=== PATIENT | female | born 1995 | race Caucasian/White ===

== ENCOUNTER 2024-07-04 13:55 | Outpatient (OUT) | payer BC, SELFPAY ==
[2024-07-04 14:14] LABS: Basophils Percent Auto 0.3 % (0.2-2.0); Eosinophils Absolute Auto 0.1 10^3/uL (0.0-0.7); Eosinophils Percent Auto 1.8 % (0.9-7.0); Hematocrit 37.3 % (36.0-48.0); Hemoglobin 12.1 g/dL (12.0-16.0); Immature Granulocytes Abs Auto 0.02 10^3/uL (0.00-0.03); Immature Granulocytes Pct Auto 0.3 % (0.0-0.5); Lymphocytes Absolute Auto 2.4 10^3/uL (1.2-3.8); Lymphocytes Percent Auto 36.5 % (20.5-60.0); Mean Corpuscular HGB Conc 32.4 g/dL (29.9-35.2); Mean Corpuscular Hemoglobin 26.4 pg (26.7-34.0); Mean Corpuscular Volume 81.4 fL (81.0-99.0); Monocytes Absolute Auto 0.3 10^3/uL (0.3-0.8); Neutrophils Absolute Auto 3.7 10^3/uL (1.4-6.5); Neutrophils Percent Auto 56.1 % (43.0-75.0); Platelet Count 378 10^3/uL (150-450); Red Blood Count 4.58 10^6/uL (4.20-5.40); Red Cell Distribution Width 14.6 % (11.0-15.0); White Blood Count 6.6 10^3/uL (4.0-11.0)
[2024-07-04 14:37] LABS: Estimated Average Glucose 148 mg/dL; Glycohemoglobin A1C 6.8 % (4.5-6.2)
[2024-07-04 15:36] LABS: Free T4 0.87 ng/dL (0.76-1.46)
[2024-07-04 15:43] LABS: Thyroid Stimulating Hormone 1.028 uIU/mL (0.358-3.740)
[2024-07-04 15:47] LABS: HCG Quantitative <1 mIU/mL
[2024-07-05 04:07] LABS: FSH 4.1 mIU/mL (.); Luteinizing Hormone(LH) 4.9 mIU/mL (.); Progesterone 0.2 ng/mL (.)
[2024-07-07 17:09] LABS: DHEA, Serum 375 ng/dL (31-701)
== END 2024-07-04 13:56 | disposition home or self-care (01) ==
LOC: LAB 13:58
PROVIDERS: PCP Family Medicine; Visit Provider Obstetrics & Gynecology
DX: E28.2 Polycystic ovarian syndrome (principal)
CPT/HCPCS: 36415; 82397; 82626; 82627; 83001; 83002; 83036; 84144; 84439; 84443; 84702; 85025

== ENCOUNTER 2024-07-11 13:54 | Outpatient (OUT) | payer BC, SELFPAY ==
--- NOTE | 2024-07-11 13:57 | US_ITS ---
The [address] [address] Patient Name: GARRETT MURPHY MRN: [id number] date: 1995 Sex: F Assigned Patient Location: Current Patient Location: Accession/Order Number: [id number] Exam Date: 07/11/2024 14:05 Report Date: 07/12/2024 14:01 At the request of: RADHA MAGUIRE Procedure: US pelvis w/ transvaginal EXAMINATION: US pelvis w/ transvaginal HISTORY: Polycystic Ovarian Syndrome E28.2 COMPARISON: No relevant comparison available. FINDINGS: Transabdominal and transvaginal images The uterus is normal in size, contour and echotexture, anteverted. Uterus measures 7.3 x 3.2 x 3.5 cm. No focal myometrial mass The endometrium measures 11.3 mm, normal. Areas of anechoic echogenicity cervix likely nabothian cysts The right ovary is normal measuring 3.1 x 1.6 x 2.4 cm. Normal color and Doppler flow. The left ovary is normal in size measuring 3.7 x 2.6 x 3.0 cm. Normal color Doppler flow. Multiple peripheral subcentimeter follicles US/US pelvis w/ transvaginal IMPRESSION: Asymmetric multiple peripheral subcentimeter follicles in the left ovary, polycystic ovarian morphology Electronically authenticated by: HEMA YAO Date: 07/12/2024 14:01
== END 2024-07-11 13:55 | disposition home or self-care (01) ==
LOC: US 13:55
PROVIDERS: Visit Provider Obstetrics & Gynecology
DX: E28.2 Polycystic ovarian syndrome (principal)
CPT/HCPCS: 76830; 76856

== ENCOUNTER 2024-07-23 15:59 | Emergency (ER) | payer BC, SELFPAY ==
[2024-07-23 16:02] VITALS: BP 115/39; PULSE 101; TEMP 37.3; O2SAT 98; BMI 52.4
--- OUTSIDE RECORDS SUMMARY | 2024-07-23 16:08 | XMS_ITS | CCD ---
Author Organization [facility] Care Team Providers Care 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 Name Role Phone JONATHAN, DR KAREN Vang Primary Care Unavailable NAJMA, DR HEMA Benitez Consulting Unavailable KUNS, DR KAREN Vang Admitting Unavailable KUNS, DR KAREN Vang Attending Unavailable KUNS, DR KAREN Vang Consulting Unavailable KUNS, DR KAREN Vang Primary Care Unavailable KUNS, DR KAREN Vang Admitting Unavailable KUNS, DR KAREN Vang Attending Unavailable KUNS, DR KAREN Vang Primary Care Unavailable KUNS, DR KAREN Vang Admitting Unavailable KUNS, DR KAREN Vang Attending Unavailable KUNS, DR KAREN Vang Primary Care Unavailable GUADALUPEEBCARTER, DR ROSHNI Vang Consulting Unavailable KUNS, DR KAREN Vang Admitting Unavailable KUNS, DR KAREN Vang Attending Unavailable KUNS, DR KAREN Vang Consulting Unavailable KUNS, DR KAREN Vang Primary Care Unavailable ZIEBCARTER, DR ROSHNI Vang Consulting Unavailable KUNS, DR KAREN Vang Admitting Unavailable KUNS, DR KAREN Vang Attending Unavailable KUNS, DR KAREN Vang Consulting Unavailable Furlong Yahir OKEEFE Primary Care Provider [phone] KAREN DAI Referring Unavailable FURLONG, YAHIR G Primary Care Unavailable KAREN DAI Attending Unavailable FURLONG, YAHIR G Referring Unavailable FURLONG, YAHIR G Primary Care Unavailable GERALD BUTTERFIELD Attending Unavailable KAREN DAI Referring Unavailable FURLONG, YAHIR G Primary Care Unavailable GERALD BUTTERFIELD Attending Unavailable FURLONG, YAHIR G Referring Unavailable FURLONG, YAHIR G Primary Care Unavailable KUNKAREN Munoz Attending Unavailable FURLONG, YAHIR G Referring Unavailable FURLONG, YAHIR G Primary Care Unavailable KUNKAREN Munoz Referring Unavailable FURLONG, YAHIR G Primary Care Unavailable CARMELO ROCHA Referring Unavailable FURLONG, YAHIR G Primary Care Unavailable FURLONG, YAHIR G Referring Unavailable FURLONG, YAHIR G Primary Care Unavailable HEMA ARRIETA Attending Unavailable HEMA ARRIETA Referring Unavailable RAQUELLONG, YAHIR G Primary Care Unavailable CARMELO ROCHA Admitting Unavailable CARMELO ROCHA Attending Unavailable CARMELO ROCHA Referring Unavailable RAQUELLONG, YAHIR G Primary Care Unavailable CARMELO ROCHA Attending Unavailable CARMELO ROCHA Referring Unavailable RAQUELLONG, YAHIR G Primary Care Unavailable JULIA HARRIS Attending Unavailable CASANDRANG, YAHIR G Primary Care Unavailable KAREN DAI Referring Unavailable RAQUELLONG, YAHIR G Primary Care Unavailable JUAN [place] Attending Unavailable RADHA MAGUIRE Attending Unavailable Allergies Allergy Classification Reported Allergen(s) Allergy Type Date of Onset Reaction(s) Facility (5 sources) Penicillins; Translations: [PENICILLINS] Drug allergy (disorder) 3 [facility] Repository (8 sources) Penicillins Propensity to adverse reactions to drug 3 Hives, Rash [facility] Medications Current Medications Medication Drug Class(es) Dates Sig (Normalized) Sig (Original) escitalopram 20 mg oral tablet (8 sources) Serotonin Reuptake Inhibitor Start: 11-13-2023 take 1 tablet by mouth in the morning escitalopram (LEXAPRO) 20 mg tablet Indications: Anxiety Take 1 tablet (20 mg total) by mouth in the morning. 90 tablet 1 11/13/2023 Active losartan potassium 25 mg oral tablet (6 sources) Angiotensin 2 Receptor [place] Start: 02-02-2024 take 1 tablet by mouth in the morning losartan (COZAAR) 25 mg tablet Indications: Type 2 diabetes mellitus without complication, without long-term current use of insulin ([facility]) Take 1 tablet (25 mg total) by mouth in the morning. 90 tablet 3 02/02/2024 Active psyllium 520 mg oral capsule (3 sources) Start: 02-16-2024 take 1 capsule by mouth at bedtime psyllium (METAMUCIL) 0.52 gram capsule Indications: Diarrhea, unspecified type Take 1 capsule (0.52 g total) by mouth in the morning and 1 capsule (0.52 g total) before bedtime. 60 capsule 1 02/16/2024 Active rosuvastatin calcium 5 mg oral tablet (6 sources) HMG-CoA Reductase Inhibitor Start: 02-02-2024 take 1 tablet by mouth once daily rosuvastatin (CRESTOR) 5 mg tablet Indications: Mixed hyperlipidemia Take 1 tablet (5 mg total) by mouth nightly. 90 tablet 3 02/02/2024 Active semaglutide (OZEMPIC) 0.25 mg or 0.5 mg (2 mg/3 mL) pen injector (2 sources) Start: 02-22-2024 semaglutide (OZEMPIC) 0.25 mg or 0.5 mg (2 mg/3 mL) pen injector Inject 0.25 mg under the skin every 7 days. 2 mL 0 02/22/2024 Active semaglutide, weight loss, (WEGOVY) 1 mg/0.5 mL pen injector (2 sources) Start: 11-13-2023 End: 02-02-2024 semaglutide, weight loss, (WEGOVY) 1 mg/0.5 mL pen injector Indications: Morbid obesity with BMI of 45.0-49.9, adult (CMS-HCC) Inject 0.5 mL (1 mg total) under the skin every 7 days. 2 mL 0 11/13/2023 02/02/2024 Discontinued (Therapy completed) Start: 11-13-2023 semaglutide, w eight loss, (WEGOVY) 1 mg/0.5 mL pen injector Indications: Morbid obesity with BMI of 45.0-49.9, adult (CMS-HCC) Inject 0.5 mL (1 mg total) under the skin every 7 days. 2 mL 0 11/13/2023 Active Completed/Discontinued Medications Medication Drug Class(es) Dates Sig (Normalized) Sig (Original) ferrous sulfate 325 mg oral tablet (1 source) Start: 12-21-2022 End: 02-01-2024 take 1 tablet by mouth once daily FeroSuL 325 mg (65 mg iron) tablet take 1 tablet by mouth once daily 30 tablet 5 12/21/2022 02/01/2024 Discontinued (Therapy completed) metFORMIN hydrochloride 850 mg oral tablet (6 sources) Biguanide Start: 02-23-2023 End: 02-16-2024 take 1 tablet by mouth twice daily at mealtime metFORMIN (GLUCOPHAGE) 850 mg tablet take 1 tablet by mouth twice a day - IN THE MORNING AND EVENING WITH MEALS 60 tablet 3 02/23/2023 02/16/2024 Discontinued (Discontinued by another clinician) tirzepatide (MOUNJARO) 2.5 mg/0.5 mL pen injector (4 sources) Start: 02-02-2024 End: 02-16-2024 tirzepatide (MOUNJARO) 2.5 mg/0.5 mL pen injector Indications: Type 2 diabetes mellitus without complication, without long-term current use of insulin (CMS-HCC) Inject 2.5 mg under the skin every 7 days. 2 mL 0 02/02/2024 02/16/2024 Discontinued (Cost of medication) Start: 02-02-2024 tirzepatide (M OUNJARO) 2.5 mg/0.5 mL pen injector Indications: Type 2 diabetes mellitus without complication, without long-term current use of insulin (CMS-HCC) Inject 2.5 mg under the skin every 7 days. 2 mL 0 02/02/2024 Active tirzepatide (MOUNJARO) 5 mg/ 0.5 mL pen injector (4 sources) Start: 02-23-2024 End: 02-16-2024 tirzepatide (MOUNJARO) 5 mg/ 0.5 mL pen injector Indications: Type 2 diabetes mellitus without complication, without long-term current use of insulin (CMS-HCC) Inject 5 mg under the skin every 7 days. 2 mL 2 02/23/2024 02/16/2024 Discontinued (Cost of medication) Start: 02-23-2024 tirzepatide (M OUNJARO) 5 mg/0.5 mL pen injector Indications: Type 2 diabetes mellitus without complication, without long-term current use of insulin (CMS-HCC) Inject 5 mg under the skin every 7 days. 2 mL 2 02/23/2024 Active Problems Active Problems Problem Classification Problem Date Documented Da te Episodic/Chronic Abdominal pain (1 source) Abdominal pain Onset: 4 Episodic Anxiety disorders (8 sources) Anxiety; Translations: [Anxiety disorder, unspecified] Onset: 3 02-25-2023 Chronic Deficiency and other anemia (1 source) Iron deficiency anemia due to blood loss; Translations: [Iron deficiency anemia secondary to blood loss (chronic)] 02-01-2024 Chronic Deficiency and other anemia (2 sources) Iron deficiency anemia secondary to blood loss (chronic); Translations: [Iron deficiency anemia secondary to blood loss (chronic)] Onset: 4 Chronic Diabetes mellitus without complication (10 sources) Type 2 diabetes mellitus without complication; Translations: [Type 2 diabetes mellitus without complications] Onset: 4 02-02-2024 Chronic Disorders of lipid metabolism (12 sources) Mixed hyperlipidemia; Translations: [Mixed hyperlipidemia] Onset: 3 02-01-2024 Chronic Esophageal disorders (1 source) Gastro-esophageal reflux disease without esophagitis; Translations: [Gastro-esophageal reflux disease without esophagitis] Onset: 4 Chronic Gastritis and duodenitis (1 source) Chronic superficial gastritis without bleeding; Translations: [Chronic superficial gastritis without bleeding] Onset: 4 Chronic Gastrointestinal hemorrhage (1 source) Hemorrhage of anus and rectum; Translations: [Hemorrhage of anus and rectum] Onset: 4 Episodic Gastrointestinal hemorrhage (1 source) Gastrointestinal hemorrhage Onset: 4 Malaise and fatigue (3 sources) Fatigue; Translations: [Other fatigue] Onset: 4 02-01-2024 Episodic Other endocrine disorders (5 sources) Polycystic ovarian syndrome; Translations: [POLYCYSTIC OVARIAN SYNDROME] Onset: 1 Chronic Other endocrine disorders (8 sources) Polycystic ovary syndrome; Translations: [Polycystic ovarian syndrome] Onset: 3 02-25-2023 Chronic Other female genital disorders (4 sources) Abnormal uterine and vaginal bleeding, unspecified; Translations: [ABNORMAL UTERINE VAGINAL BLEED UNS] Onset: 1 Chronic Other gastrointestinal disorders (4 sources) Diarrhea; Translations: [Diarrhea, unspecified] Onset: 4 02-01-2024 Episodic Other gastrointestinal disorders (1 source) Diarrhea of presumed infectious origin; Translations: [Diarrhea, unspecified] 02-03-2024 Episodic Other gastrointestinal disorders (2 sources) Diarrhea, unspecified; Translations: [Diarrhea, unspecified] Onset: 4 Episodic Other nutritional; endocrine; and metabolic disorders (8 sources) Body mass index 40+ - severely obese; Translations: [Morbid (severe) obesity due to excess calories] Onset: 3 02-25-2023 Chronic Other nutritional; endocrine; and metabolic disorders (1 source) Morbid (severe) obesity due to excess calories; Translations: [Morbid (severe) obesity due to excess calories] Onset: 3 Chronic Other nutritional; endocrine; and metabolic disorders (1 source) Body mass index (BMI) 45.0-49.9, adult; Translations: [Body mass index (BMI) 45.0-49.9, adult] Onset: 3 Chronic Unclassified (1 source) Gynecologic Exam Onset: 4 Unclassified (1 source) Esophagitis, unspecified without bleeding; Translations: [Esophagitis, unspecified without bleeding] Onset: 4 Past or Other Problems Problem Classification Problem Date Documented Da te Episodic/Chronic Diabetes mellitus without complication (4 sources) Prediabetes; Translations: [Prediabetes] Onset: 02-25-2023 02-01-2024 Episodic Mood disorders (8 sources) Mood disorders Onset: 02-01-2024 02-01-2024 Spondylosis; intervertebral disc disorders; other back problems (4 sources) Radiculopathy, lumbar region; Translations: [RADICULOPATHY LUMBAR REGION] Onset: 02-21-2022 Episodic Sprains and strains (4 sources) Strain of muscle, fascia and tendon of lower back, subsequent encounter; Translations: [STRAIN MUSC FASC TENDON LW BACK SUB] Onset: 02-18-2022 Episodic Results Test Name Value Interpretation Reference Range Facility Cytologyon 04-19-2024 Cytology Normal [facility] Comment on above: Result Comment: [facility] [address] [place] [address] Gynecologic Cytology Consultation Patient Name:GARRETT MURPHY:1995 (Age: 29)Gender:FTaken:4Reported:05/02/2024hysician(s):Karen Dai C.N.PTravis ([phone])Copy To: Rec. #:[id number]: #[id number] Final Cytologic Interpretation ThinPrep Pap Test (Cervical): Satisfactory for evaluation. A transformazion zone component is not identified via imaging-assisted review, using [employer] Thin Prep Imaging System, within 22 microscopic resendez of view. NEGATIVE FOR INTRAEPITHELIAL LESION OR MALIGNANCY. j/05/02/2024 Interpretation performed at [facility], [address] [place] [address], License number: [id number]. Electronically Signed Out By JUN Aguiar(ASCP) Date of Last Menstrual Period: 02/22/24 Other Clinical Conditions: Z01.419 Ui Developer With Angular Js exam wo/abn findings Source of Specimen ThinPrep Pap Test (Cervical) Thin Prep Pap (DIE ENGRAVER) Fee Code(s): G0145 The Pap test is a screening test with an inherent, but low, probability of error. The Pap test is primarily effective for the diagnosis and prevention of squamous cell carcinoma. Regular screening is critical for prevention. ThinPrep liquid-based slides, which meet the Energy Conservation Director criteria for automated screening, have been screened by the ThinPrep Imaging System (as of 08/09/07) along with an additional manual rescreening by a traffic engineering technician and, if indicated, by a pathologist. HIGH RISK HPV W/GENOon 04-19 HPV 31+33+35+39+45+51+52 +56+58+59+66+68 DNA NICHOLE+probe Ql (Cvx) HPV SPECIMEN TYPE ThinPrep HPV 16 Negative (qualifier value) HPV 18 Negative (qualifier value) OTHER HIGH RISK HPV Negative (qualifier value) HPV types 31,33,35,39,45,52,56,58 ,59,66 and 68 DNA were undetectable. Normal [facility] Comment on above: Performed By: #### 7 1431-1 #### [facility] ([id number]) [address] [place] [address], [place] [address] [facility] ([id number]) [address] [place] [address], [address] [place] [address] H PYLORI SCREENon 03-31-2024 H. pylori Org specific cx Ql (Raiza fld) Negative Normal NEG [facility] Comment on above: Performed By: #### 4 4015-6 #### [facility] ([id number]) [address] [place] [address], [address] [place] [address] HCG ( test) Ql (U)o n 03-31-2024 Beta HCG ( test) Ql (U) Negative Normal NEG [facility] Comment on above: Performed By: #### 2 106-3 #### [facility] ([id number]) [address] [facility], [place] [address] Surgical Pathologyon 024 Surgical Pathology Normal [facility] Comment on above: Result Comment: [facility] [address] [place] [address] Surgical Pathology Consultation ADDENDUM [place] Patient Name:GARRETT MURPHY:1995 (Age: 29)Gender:FTaken:03/31/2024eported:04/04/2024hysician(s):Carmelo Rocha D.O. ([phone])Copy To: Rec. #:[id number]: #[id number] Final Pathologic Diagnosis 1. Gastric antrum biopsies: Mild superficial nonspecific chronic inactive gastritis. Immunostain for H. pylori is pending. No intestinal metaplasia or dysplasia identified. 2. Distal esophageal biopsies: Unremarkable squamous mucosa. No active or eosinophilic esophagitis identified. No intestinal metaplasia or dysplasia identified. Report Electronically Signed Out ssi/04/04/2024Javier Ragland M.D. Addendum ([facility]) Date Reported: 04/05/2024 1. Immunohistochemical stain for H. pylori is negative with satisfactory control. Electronically Signed Out Javier Ragland M.D. Interpretation performed at [facility], [address] [place] [address], License number: [id number]. Clinical History Rectal bleeding, diarrhea, chronic gastroesophageal reflux. Gross Description 1. Received in formalin labeled KATHERINE, #1: Antrum are 2 dove bits/strips of soft tissue, ranging from 0.3-0.6 cm in greatest dimension. Filtered and submitted in a single cassette. (1, ns, [id number], m7) MG 2. Received in formalin labeled MURPHY, #2: Distal esophagus are 2 dove bits of soft tissue, each 0.3 cm in greatest dimension. Filtered and submitted in a single cassette. (1, ns, [id number], m7) MG mjg/03/31/2024NSK Specimen(s) Received 1: Antrum 2: Distal esophageal biopsy Fee Codes(s): 1; 07976, 04745 2; 98774 Calprotectin (Stl) [Mass/Mas s]on 02-17-2024 Calprotectin, F <50.0 Normal <50.0 (Normal) [facility] Comment on above: Result Comment: NOTE Test Performed by: [place] [address] Nurse Special: Ray Marie M.D. Ph.D.; CLIA# [id number] Performed By: #### 3 8445-3 #### [facility] ([id number]) [address] [place] [address] FAT, FECES QUANTon 4 DURATION 24 h Normal [facility] Comment on above: Result Comment: NOTE More reliable results can be obtained from a 48 or 72 hour collection. Performed By: #### F ATF #### [facility] ([id number]) [address] [place] [address] FAT PERCENT DNR Normal [facility] Comment on above: Performed By: #### F ATF #### [facility] ([id number]) [address] [place] [address] TOTAL FAT <1 Low 2 - 7 [facility] Comment on above: Result Comment: NOTE ADDITIONAL INFORMATION This test was developed and its performance characteristics determined by [facility] in a manner consistent with CLIA requirements. This test has not been cleared or approved by the U.S. Food and Drug Administration. Test Performed by: [address] [address] Nurse Special: Ray Marie M.D. Ph.D.; CLIA# [id number] Performed By: #### F ATF #### [facility] ([id number]) [address] [place] [address] TOTAL WEIGHT 40 g Normal [facility] Comment on above: Result Comment: NOTE A typical adult stool collection contains between 100 and 200 grams of stool per 24 hours. The amount submitted for testing was less than 100 grams/24 hours; therefore, reliable results may not be obtained. Repeat collection is recommended. Performed By: #### F ATF #### [facility] ([id number]) [address] [place] [address] GI PANELon 02-03-2024 Gastrointestinal pathogens DNA and RNA panel NICHOLE+non-probe (Stl) SPECIMEN SOURCE STOOL CAMPYLOBACTER Not detected (qualifier value) PLESIOMONAS Not detected (qualifier value) SALMONELLA Not detected (qualifier value) VIBRIO Not detected (qualifier value) VIBRIO CHOLERAE Not detected (qualifier value) Y. ENTEROCOLITICA Not detected (qualifier value) AGGREGATIVE E COLI Not detected (qualifier value) PATHOGENIC E COLI Not detected (qualifier value) TOXIGENIC E COLI Not detected (qualifier value) SHIGA TOXIN E COLI Not detected (qualifier value) SHIGELLA-E COLI Not detected (qualifier value) CRYPTOSPORIDIUM Not detected (qualifier value) CYCLOSPORA Not detected (qualifier value) E HISTOLYTICA Not detected (qualifier value) GIARDIA LAMBLIA Not detected (qualifier value) ADENOVIRUS Not detected (qualifier value) ASTROVIRUS Not detected (qualifier value) NOROVIRUS Not detected (qualifier value) ROTAVIRUS A Not detected (qualifier value) SAPOVIRUS Not detected (qualifier value) Normal NDET [facility] Comment on above: Performed By: #### 8 2195-9 #### [facility] ([id number]) [address] [facility], [place] [address] [facility] ([id number]) [address], [address] [place] [address] CBC AND AUTO DIFFon 02-01-20 24 ABSOLUTE BASOPHIL 0.1 X10E9/L Normal 0.0-0.2 [facility] Comment on above: Performed By: #### C BCA, CMP, 2498-4, 43846-9, THYR #### [facility] ([id number]) [address], [address] [place] [address] ABSOLUTE NEUTROPHIL 5.9 X10E9/L Normal 1.5-6.6 [facility] Comment on above: Performed By: #### C BCA, CMP, 2498-4, 56758-8, THYR #### [facility] ([id number]) [address], [address] [place] [address] Basophils/100 WBC (Bld) 0.7 % Normal [facility] Comment on above: Performed By: #### C BCA, CMP, 2498-4, 82531-6, THYR #### [facility] ([id number]) [address], [address] [place] [address] Eosinophils (Bld) [#/Vol] 0.1 10*3/uL Normal 0.0-0.4 [facility] Comment on above: Performed By: #### C BCA, CMP, 2498-4, 23112-7, THYR #### [facility] ([id number]) [address], [address] [place] [address] Eosinophils/100 WBC (Bld) 0.8 % Normal [facility] Comment on above: Performed By: #### C BCA, CMP, 2498-4, 89307-5, THYR #### [facility] ([id number]) [address], [address] [place] [address] Erythrocyte distribution width (RBC) [Ratio] 15.3 % High 11.5-15.0 [facility] Comment on above: Performed By: #### C BCA, CMP, 2498-4, 14611-6, THYR #### [facility] ([id number]) [address], [address] [place] [address] Hematocrit (Bld) [Volume fraction] 40.2 % Normal 35-47 [facility] Comment on above: Performed By: #### C BCA, CMP, 2498-4, 52665-2, THYR #### [facility] ([id number]) [address], [address] [place] [address] Hemoglobin (Bld) [Mass/Vol] 13.3 g/dL Normal 11.7-15.5 [facility] Comment on above: Performed By: #### C BCA, CMP, 2498-4, 87666-3, THYR #### [facility] ([id number]) [address], [address] [place] [address] Lymphocytes (Bld) [#/Vol] 1.9 10*3/uL Normal 1.0-3.5 [facility] Comment on above: Performed By: #### C BCA, CMP, 2498-4, 02201-9, THYR #### [facility] ([id number]) [address], [address] [place] [address] Lymphocytes/100 WBC (Bld) 22.9 % Normal [facility] Comment on above: Performed By: #### C BCA, CMP, 2498-4, 20818-0, THYR #### [facility] ([id number]) [address], [address] [place] [address] MCH (RBC) [Entitic mass] 27.1 pg Normal 27-34 [facility] Comment on above: Performed By: #### C BCA, CMP, 2498-4, 32638-2, THYR #### [facility] ([id number]) [address], [facility] [address] [place] [address] MCHC (RBC) [Mass/Vol] 33.0 g/dL Normal 32-36 [facility] Comment on above: Performed By: #### C BCA, CMP, 2498-4, 78013-5, THYR #### [facility] ([id number]) [address], [facility] [address] [place] [address] MCV (RBC) [Entitic vol] 82 fL Normal 80-100 [facility] Comment on above: Performed By: #### C BCA, CMP, 2498-4, 95092-2, THYR #### [facility] ([id number]) [address], [facility] [address] [place] [address] Monocytes (Bld) [#/Vol] 0.3 10*3/uL Normal 0-0.9 [facility] Comment on above: Performed By: #### C BCA, CMP, 2498-4, 67594-4, THYR #### [facility] ([id number]) [address], [address] [address] Monocytes/100 WBC (Bld) 4.1 % Normal [facility] Comment on above: Performed By: #### C BCA, CMP, 2498-4, 33162-7, THYR #### [facility] ([id number]) [address], [facility] [address] [place] [address] Neutrophils/100 WBC (Bld) 71.5 % Normal [facility] Comment on above: Performed By: #### C BCA, CMP, 2498-4, 95497-8, THYR #### [facility] ([id number]) [address], [address] [place] [address] Platelet mean volume (Bld) [Entitic vol] 7.8 fL Normal 7-12 [facility] Comment on above: Performed By: #### C BCA, CMP, 2498-4, 46796-6, THYR #### [facility] ([id number]) [address] [address] Platelets (Bld) [#/Vol] 429 10*3/uL Normal 150-450 [facility] Comment on above: Performed By: #### Liane BCA, CMP, 2498-4, 55867-4, THYR #### [facility] ([id number]) [address] [address] RBC COUNT 4.89 X10E12/L Normal 3.80-5.20 [facility] Comment on above: Performed By: #### Liane BCA, CMP, 2498-4, 52131-4, THYR #### [facility] ([id number]) [address] [address] WBC (Bld) [#/Vol] 8.2 10*3/uL Normal 4.0-11.0 [facility] Comment on above: Performed By: #### Liane BCA, CMP, 2498-4, 05801-3, THYR #### [facility] ([id number]) [address] [address] CBC auto differentialon 01-21 Basophils (Bld) [#/Vol] 0.1 10*3/uL [facility] Basophils/100 WBC (Bld) 0.7 % [facility] Eosinophils (Bld) [#/Vol] 0.1 10*3/uL [facility] Eosinophils/100 WBC (Bld) 0.8 % [facility] Erythrocyte distribution width (RBC) [Ratio] 15.3 % High 11.5 - 15.0 % [facility] Hematocrit (Bld) [Volume fraction] 40.2 % 35 - 47 % [facility] Hemoglobin (Bld) [Mass/Vol] 13.3 g/dL 11.7 - 15.5 g/dL [facility] Interpretation and review of laboratory results Abnormal [facility] Lymphocytes (Bld) [#/Vol] 1.9 10*3/uL [facility] Lymphocytes/100 WBC (Bld) 22.9 % [facility] MCH (RBC) [Entitic mass] 27.1 pg 27 - 34 pg [facility] MCHC (RBC) [Mass/Vol] 33.0 g/dL 32 - 36 g/dL [facility] MCV (RBC) [Entitic vol] 82 fL 80 - 100 fL [facility] Monocytes (Bld) [#/Vol] 0.3 10*3/uL [facility] Monocytes/100 WBC (Bld) 4.1 % [facility] Neutrophils (Bld) [#/Vol] 5.9 10*3/uL [facility] Neutrophils/100 WBC (Bld) 71.5 % [facility] Platelet mean volume (Bld) [Entitic vol] 7.8 fL 7 - 12 fL [facility] Platelets (Bld) [#/Vol] 429 10*3/uL [facility] RBC (Bld) [#/Vol] 4.89 10*6/uL [facility] WBC corrected for nucl RBC Auto (Bld) [#/Vol] 8.2 [facility] COMPREHENSIVE METABOLIC PANE Raffaele 02-01-2024 Albumin [Mass/Vol] 4.4 g/dL Normal 3.2-5.3 [facility] Comment on above: Performed By: #### C BCA, CMP, 2498-4, 16114-6, THYR #### [facility] ([id number]) [address], [address] [place] [address] ALP [Catalytic activity/Vol] 71 U/L Normal 39-130 [facility] Comment on above: Performed By: #### C BCA, CMP, 2498-4, 36272-8, THYR #### [facility] ([id number]) [address], [address] [place] [address] ALT [Catalytic activity/Vol] 53 U/L High 0-31 [facility] Comment on above: Performed By: #### C BCA, CMP, 2498-4, 87023-7, THYR #### [facility] ([id number]) [address], [address] [place] [address] Anion gap [Moles/Vol] 9 mmol/L Normal 5-15 [facility] Comment on above: Performed By: #### C BCA, CMP, 2498-4, 94989-5, THYR #### [facility] ([id number]) [address], [address] [place] [address] AST [Catalytic activity/Vol] 35 U/L Normal 0-41 [facility] Comment on above: Performed By: #### C BCA, CMP, 2498-4, 50343-6, THYR #### [facility] ([id number]) [address], [address] [place] [address] Bilirubin [Mass/Vol] 0.5 mg/dL Normal 0.3-1.2 [facility] Comment on above: Performed By: #### C BCA, CMP, 2498-4, 64076-5, THYR #### [facility] ([id number]) [address], [address] [place] [address] Calcium [Mass/Vol] 9.7 mg/dL Normal 8.5-10.5 [facility] Comment on above: Performed By: #### C BCA, CMP, 2498-4, 20555-5, THYR #### [facility] ([id number]) [address], [address] [place] [address] Chloride [Moles/Vol] 104 mmol/L Normal 98-109 [facility] Comment on above: Performed By: #### C BCA, CMP, 2498-4, 00287-5, THYR #### [facility] ([id number]) [address], [address] [place] [address] CO2 [Moles/Vol] 26 mmol/L Normal 22-32 [facility] Comment on above: Performed By: #### C BCA, CMP, 2498-4, 28364-1, THYR #### [facility] ([id number]) [address], [address] [place] [address] Creatinine [Mass/Vol] 0.57 mg/dL Normal 0.40-1.00 [facility] Comment on above: Result Comment: METH OD TRACEABLE TO IDMS STANDARD Performed By: #### C BCA, CMP, 2498-4, 73379-5, THYR #### [facility] ([id number]) [address], [address] [place] [address] eGFR (CKD-EPI) NON-RACE DEPENDENT >90 Normal >59 [facility] Comment on above: Result Comment: Reported eGFR is based on the CKD-EPI 2020 equation that does not use a race coefficient. Performed By: #### C BCA, CMP, 2498-4, 80619-9, THYR #### [facility] ([id number]) [address], [facility] [address] [place] [address] Glucose [Mass/Vol] 136 mg/dL High 65-99 [facility] Comment on above: Performed By: #### C BCA, CMP, 2498-4, 03636-8, THYR #### [facility] ([id number]) [address] [place] [address] Potassium [Moles/Vol] 3.8 mmol/L Normal 3.5-5.0 [facility] Comment on above: Performed By: #### C BCA, CMP, 2498-4, 01312-0, THYR #### [facility] ([id number]) [address], [address] [place] [address] Protein [Mass/Vol] 7.9 g/dL Normal 6.0-8.0 [facility] Comment on above: Performed By: #### C BCA, CMP, 2498-4, 98841-2, THYR #### [facility] ([id number]) [address], [facility] [address] [place] [address] Sodium [Moles/Vol] 139 mmol/L Normal 134-146 [facility] Comment on above: Performed By: #### C BCA, CMP, 2498-4, 08451-2, THYR #### [facility] ([id number]) [address], [facility] [address] [place] [address] Urea nitrogen [Mass/Vol] 8 mg/dL Normal 5-23 [facility] Comment on above: Performed By: #### C BCA, CMP, 2498-4, 78193-7, THYR #### [facility] ([id number]) [address], [facility] [address] [place] [address] HGB A1C (GLYCO-HGB)on 2023 Glucose [Mass/Vol] 157 mg/dL Normal [facility] Comment on above: Performed By: #### C BCA, CMP, 2498-4, 23796-8, THYR #### [facility] ([id number]) [address], [facility] [address] [place] [address] HbA1c (Bld) [Mass fraction] 7.1 % High 4.4-5.6 [facility] Comment on above: Result Comment: NOTE ADA Guidelines Result HgbA1c Normal : less than 5.7 % Prediabetes : 5.7 % to 6.4 % Diabetes : > 6.4 % Use with caution in patients with abnormal hemoglobin variants as the half-life of red blood cells and in vivo glycation rates are affected. Performed By: #### C BCA, CMP, 2498-4, 96198-1, THYR #### [facility] ([id number]) [address], [address] [place] [address] IRONon 02-01-2024 Iron [Mass/Vol] 80 ug/dL Normal 50-170 [facility] Comment on above: Performed By: #### Liane BCA, CMP, 2498-4, 13624-7, THYR #### [facility] ([id number]) [address], [address] [place] [address] Lipid 1996 panelon Cholesterol [Mass/Vol] 223 mg/dL High 150-200 [facility] Comment on above: Performed By: #### Liane BCA, CMP, 2498-4, 44281-8, THYR #### [facility] ([id number]) [address], [address] [place] [address] Cholesterol in HDL [Mass/Vol] 36 mg/dL Low >39 [facility] Comment on above: Result Comment: HDL <40 mg/dL - High Risk HDL > or = 40mg/dL- Desirable HDL >60 mg/dL - Negative Risk Performed By: #### C BCA, CMP, 2498-4, 05297-3, THYR #### [facility] ([id number]) [address], [address] [place] [address] Cholesterol in LDL [Mass/Vol] 123 mg/dL Normal <130 [facility] Comment on above: Result Comment: LDL <100 mg/dL - Desirable LDL >160 mg/dL - High Risk Performed By: #### C BCA, CMP, 2498-4, 39670-8, THYR #### [facility] ([id number]) [address], [address] [place] [address] Cholesterol in VLDL [Mass/Vol] 64 mg/dL High 0-30 [facility] Comment on above: Performed By: #### C BCA, CMP, 2498-4, 85307-0, THYR #### [facility] ([id number]) [address], [address] [place] [address] CHOLESTEROL:HDL 6.2 High 1.0-5.0 [facility] Comment on above: Performed By: #### C BCA, CMP, 2498-4, 70704-3, THYR #### [facility] ([id number]) [address], [address] [place] [address] Triglyceride [Mass/Vol] 320 mg/dL High 27-150 [facility] Comment on above: Performed By: #### C BCA, CMP, 2498-4, 69855-4, THYR #### [facility] ([id number]) [address], [address] [place] [address] THYROID PROFILEon 02-01-2024 Free T4 [Mass/Vol] 0.90 ng/dL Normal 0.61-1.60 [facility] Comment on above: Performed By: #### C BCA, CMP, 2498-4, 50117-7, THYR #### [facility] ([id number]) [address], [address] [place] [address] TSH 0.82 uIU/mL Normal 0.49-4.67 [facility] Comment on above: Performed By: #### C BCA, CMP, 2498-4, 25920-2, THYR #### [facility] ([id number]) [address], [address] [place] [address] XR LSPINE 2_3 VIEWSon 2021 XR LSPINE 2_3 VIEWS EXAMINATION: XR LSPI NE 2_3 VIEWS HISTORY: Lumbar radiculopathy COMPARISON: No relevant comparison available. FINDINGS: BONES: Normal. No significant spondylosis, scoliosis, fracture, or visible bony lesion. DISC SPACES: Normal. No significant disc height narrowing, subluxation, or endplate abnormality. PARASPINOUS: Negative. No paraspinous abnormality is seen. OTHER: Right upper quadrant surgical clips likely from cholecystectomy. IMPRESSION: No acute abnormality Electronically authenticated by: HEMA YAO Date: 2022-02-21 16:58 Normal [facility] US KIDNEYSon 11-15-2021 US KIDNEYS EXAMINATION: US KIDN S HISTORY: Polycystic ovary syndrome COMPARISON: No relevant comparison available. TECHNIQUE: Ultrasound examination was performed of the kidneys and urinary bladder. FINDINGS: RIGHT KIDNEY: No evidence of pelvocaliectasis, mass, calculi. Normal renal cortical parenchymal echogenicity. Color Doppler demonstrates blood flow within the kidney. Kidney: 12.5 x 6.0 x 6.5 cm LEFT KIDNEY: No evidence of pelvocaliectasis, mass, calculi. Normal renal cortical parenchymal echogenicity. Color Doppler demonstrates blood flow within the kidney. Kidney: 13.2 x 7.0 x 4.8 cm BLADDER: No visible wall thickening, mass, calculi. IMPRESSION: 1. Normal ultrasound appearance of the kidneys and urinary bladder. Electronically authenticated by: ROSHNI HERNANDEZ Date: 2021-11-15 11:51 Normal [facility] US PELVIS AND TRANSVAGon US PELVIS AND TRANSVAG EXAMINATION: US PELVIS AND TRANSVAG HISTORY: Abnormal uterine bleeding unrelated to menstrual cycle COMPARISON: No relevant comparison available. TECHNIQUE: Transabdominal and transvaginal sonographic examination. FINDINGS: UTERUS: Normal size and appearance. Several small nabothian cysts within becker of cervix. Uterus size: 7.4 x 2.9 x 4.2 cm ENDOMETRIUM: Normal homogeneous appearance. Endometrial thickness: 5 mm RIGHT OVARY: Contains numerous peripherally located small follicles. Duplex Doppler demonstrates normal waveform and flow; resistive index 0.55. Ovary size: 4.0 x 3.1 x 2.9 cm LEFT OVARY: Contains numerous peripherally located small follicles. Duplex Doppler demonstrates normal waveform and flow; resistive index 0.51. Ovary size: 3.8 x 2.3 x 3.0 cm CUL-DE-SAC: Unremarkable. No significant free fluid. BLADDER: Unremarkable. OTHER: None. IMPRESSION: 1. Normal appearance of endometrium. 2. Both ovaries contain numerous peripherally located small follicles; nonspecific but can be seen with polycystic kidney disease. Electronically authenticated by: ROSHNI HERNANDEZ Date: 2021-11-13 16:47 Normal [facility] CBC (INCLUDES DIFF/PLT)on Basophils (Bld) [#/Vol] 0.051 10*3/uL Normal 0-200 [facility] Comment on above: Performed By: #### 6 399, 20402, 5616 #### [facility] [place] [address] [address]: Shaquille Granger MD Basophils/100 WBC (Bld) 0.5 % Normal [facility] Comment on above: Performed By: #### 6 399, 64969, 5616 #### [facility] [place] [address] [address] [place]: Shaquille Granger MD Eosinophils (Bld) [#/Vol] 0.122 10*3/uL Normal 15-500 [facility] Comment on above: Performed By: #### 6 399, 45471, 5616 #### [facility] [place] [address] [address] [place]: Shaquille Granger MD Eosinophils/100 WBC (Bld) 1.2 % Normal [facility] Comment on above: Performed By: #### 6 399, 07692, 5616 #### [facility] [place] [address] [address]: Shaquille Granger MD Erythrocyte distribution width (RBC) [Ratio] 17.5 % High 11.0-15.0 [facility] Comment on above: Performed By: #### 6 399, 84899, 5616 #### [facility] [place] [address] [address]: Shaquille Granger MD Hematocrit (Bld) [Volume fraction] 29.0 % Low 35.0-45.0 [facility] Comment on above: Performed By: #### 6 399, 75198, 5616 #### [facility] of [place] [address] [address]: Shaquille Granger MD Hemoglobin (Bld) [Mass/Vol] 8.7 g/dL Low 11.7-15.5 [facility] Comment on above: Performed By: #### 6 399, 60716, 5616 #### [facility] of [place] [address] [address]: Shaquille Granger MD Lymphocytes (Bld) [#/Vol] 3.866 10*3/uL Normal 850-3900 [facility] Comment on above: Performed By: #### 6 399, 58567, 5616 #### [facility] of [place] [address] [address] [place]: Shaquille Granger MD Lymphocytes/100 WBC (Bld) 37.9 % Normal [facility] Comment on above: Performed By: #### 6 399, 56684, 5616 #### [facility] [place] [address] [address]: Shaquille Granger MD MCH (RBC) [Entitic mass] 21.0 pg Low 27.0-33.0 [facility] Comment on above: Performed By: #### 6 399, 85791, 5616 #### [facility] of [place] [address] [address]: Shaquille Granger MD MCHC (RBC) [Mass/Vol] 30.0 g/dL Low 32.0-36.0 [facility] Comment on above: Performed By: #### 6 399, 71167, 5616 #### [facility] of [place] [address] [address]: Shaquille Granger MD MCV (RBC) [Entitic vol] 69.9 fL Low 80.0-100.0 [facility] Comment on above: Performed By: #### 6 399, 48952, 5616 #### [facility] of [place] [address] [address]: Shaquille Granger MD Monocytes (Bld) [#/Vol] 0.622 10*3/uL Normal 200-950 [facility] Comment on above: Performed By: #### 6 399, 41785, 5616 #### [facility] of [place] [address] [address]: Shaquille Granger MD Monocytes/100 WBC (Bld) 6.1 % Normal [facility] Comment on above: Performed By: #### 6 399, 58846, 5616 #### [facility] of [place] [address] [address]: Shaquille Granger MD Neutrophils (Bld) [#/Vol] 5.539 10*3/uL Normal 2197-1642 [facility] Comment on above: Performed By: #### 6 399, 86226, 5616 #### [facility] [place] [address] [address] [place]: Shaquille Granger MD Neutrophils/100 WBC (Bld) 54.3 % Normal [facility] Comment on above: Performed By: #### 6 399, 41190, 5616 #### [facility] [place] [address] [address]: Shaquille Granger MD Platelet mean volume (Bld) [Entitic vol] 9.5 fL Normal 7.5-12.5 [facility] Comment on above: Performed By: #### 6 399, 43806, 5616 #### [facility] of [place] [address] [address]: Shaquille Granger MD Platelets (Bld) [#/Vol] 586 10*3/uL High 140-400 [facility] Comment on above: Performed By: #### 6 399, 53251, 5616 #### [facility] of [address], [address] [place] [address] [address] [place]: Shaquille Granger MD RBC (Bld) [#/Vol] 4.15 10*6/uL Normal 3.80-5.10 [facility] Comment on above: Performed By: #### 6 399, 42600, 5616 #### [facility] of [address], [address] [place] [address] [address] [place]: Shaquille Granger MD WBC (Bld) [#/Vol] 10.2 10*3/uL Normal 3.8-10.8 [facility] Comment on above: Performed By: #### 6 399, 89433, 5616 #### [facility] of [place] [address] [address]: Shaquille Granger MD CBC MORPHOLOGYon 11-08-2021 CBC MORPHOLOGY Normal NORMAL [facility] Comment on above: Result Comment: Micr ocytosis 2 + Polychromasia 1 + Hypochromasia 2 + Ovalocytes 1 + Performed By: #### 6 399, 93431, 5616 #### [facility] [place] [address] [address]: Shaquille Granger MD IRON, TIBC AND FERRITIN [facility] 11-08-2021 % SATURATION 4 % (calc) Low 16-45 [facility] Comment on above: Performed By: #### 6 399, 76921, 5616 #### [facility] of [place] [address] [address]: Shaquille Granger MD Ferritin [Mass/Vol] 6 ng/mL Low 16-154 [facility] Comment on above: Performed By: #### 6 399, 93956, 5616 #### [facility] of [place] [address] [address]: Shaquille Granger MD IRON BINDING CAPACITY 572 mcg/dL (calc) High 250-450 [facility] Comment on above: Performed By: #### 6 399, 25271, 5616 #### [facility] [address], [address] [place] [address] [address] [place]: Shaquille Granger MD IRON, TOTAL 23 mcg/dL Low 40-190 [facility] Comment on above: Performed By: #### 6 399, 07585, 5616 #### [facility] [address], [address] [place] [address] [address] [place]: Shaquille Granger MD TSH+FREE T4on 11-08-2021 Free T4 [Mass/Vol] 1.1 ng/dL Normal 0.8-1.8 [facility] Comment on above: Performed By: #### 6 399, 90591, 5616 #### [facility] [place] [address] [address]: Shaquille Granger MD TSH Qn 0.88 m[IU]/L Normal [facility] Comment on above: Result Comment: Refe rence Range > or = 20 Years 0.40-4.50 Ranges First trimester 0.26-2.66 Second trimester 0.55-2.73 Third trimester 0.43-2.91 Performed By: #### 6 399, 85038, 5616 #### [facility] [place] [address] [address]: Shaquille Granger MD IMAGE-GUIDED PAP W/AGE BASED SCR PROTOCOLSon 02-08-2021 COMMENT Normal [facility] Comment on above: Result Comment: This order for age-based cervical cancer and STI screening follows ACOG guidelines(PB 168, 140, LCN454). See individual assays for performing site location. Performed By: #### 9 0934, 64020 #### [facility] [address] [address]: Shaquille Granger MD Result Comment: EXPL ANATORY NOTE: The Pap is a screening test for cervical cancer. It is not a diagnostic test and is subject to false negative and false positive results. It is most reliable when a satisfactory sample, regularly obtained, is submitted with relevant clinical findings and history, and when the Pap result is evaluated along with historic and current clinical information. NO COLLECTION DATE RECEIVED. WE HAVE USED THE DATE THE SPECIMEN WAS RECEIVED BY THIS LABORATORY THE COLLECTION DATE. IF THIS IS INCORRECT, PLEASE CONTACT CLIENT SERVICES. PHONE NUMBER: [phone] THINPREP TIS PAP REFLEX HPV mRNA E6/E7on 02-08-2021 CLINICAL INFORMATION: Normal [facility] Comment on above: Result Comment: Rout ine exam Performed By: #### 9 0934, 44746 #### [facility] [address] [address]: Shaquille Granger MD COMMENT: Normal [facility] Comment on above: Result Comment: This Pap test has been evaluated with computer assisted technology. Performed By: #### 9 0934, 03820 #### [facility] [address] [address]: Shaquille Granger MD ELECTRICIAN STATION ASSISTANT: Normal [facility] Comment on above: Result Comment: LLT, CT(ASCP) CT screening location: [facility] [place] [address]. Performed By: #### 9 0934, 44228 #### [facility] [address] [address]: Shaquille Granger MD INTERPRETATION/RESUL T: Normal [facility] Comment on above: Result Comment: Nega tive for intraepithelial lesion or malignancy. Performed By: #### 9 0934, 27703 #### [facility] [address] [address]: Shaquille Granger MD LMP: Normal [facility] Comment on above: Result Comment: None given Performed By: #### 9 0934, 10035 #### [facility] [address] [address]: Shaquille Granger MD PREV. BX: Normal [facility] Comment on above: Result Comment: None given Performed By: #### 9 0934, 88453 #### [facility] [place] [phone] [address] [place]: Shaquille Granger MD PREV. PAP: Normal [facility] Comment on above: Result Comment: None given Performed By: #### 9 0934, 15427 #### [facility]-[address], [address] [place] [phone] [address] [place]: Shaquille Granger MD SOURCE: Normal [facility] Comment on above: Result Comment: None given Performed By: #### 9 0934, 08043 #### [facility], [address] [place] [phone] [address] [place]: Shaquille Granger MD STATEMENT OF ADEQUACY: Normal [facility] Comment on above: Result Comment: Sati sfactory for evaluation. Endocervical/transformation zone component absent. Performed By: #### 9 0934, 48711 #### [facility]-[address], [address] [place] [phone] [address] [place]: Shaquille Granger MD Vital Signs Date Time Vital Sign Value Performing Clinician Hanny hagen 02-16-2024 13:21-0400 Body height 165.1 cm Gerald Butterfield APRN-IMMIGRATION SERVICES OFFICER Work Phone: [facility] 02-16-2024 13:21-0400 Body mass index (BMI) [Ratio] 49.67 kg/m2 Gerald Butterfield APRN-IMMIGRATION SERVICES OFFICER Work Phone: [facility] 02-16-2024 13:21-040 Body weight 135.4 kg Gerald Butterfield APRN-IMMIGRATION SERVICES OFFICER Work Phone: [facility] 02-16-2024 13:21-0400 Diastolic blood pressure 85 mm[Hg] Gerald Butterfield APRN-IMMIGRATION SERVICES OFFICER Work Phone: [facility] 02-16-2024 13:21-0400 Heart rate 71 /min Gerald Butterfield APRN-IMMIGRATION SERVICES OFFICER Work Phone: [facility] 02-16-2024 13:21-0400 Systolic blood pressure 153 mm[Hg] Gerald Butterfield NURSING HOME ADMINISTRATOR-IMMIGRATION SERVICES OFFICER Work Phone: [facility] 02-01-2024 13:01-0400 Body height 165.1 cm Karen Dai NURSING HOME 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 Work Phone: [facility] 02-01-2024 13:01-0400 Body mass index (BMI) [Ratio] 50.19 kg/m2 Karen Dai NURSING HOME 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 Work Phone: [facility] 02-01-2024 13:01-0400 Body temperature 98.8 [degF] Karen Dai NURSING HOME 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 Work Phone: [facility] 02-01-2024 13:01-0400 Body weight 136.81 kg Karen Dai NURSING HOME 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 Work Phone: [facility] 02-01-2024 13:01-0400 Diastolic blood pressure 70 mm[Hg] Karen Dai NURSING HOME 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 Work Phone: [facility] 02-01-2024 13:01-0400 Heart rate 87 /min Karen Dai NURSING HOME 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 Work Phone: [facility] 02-01-2024 13:01-0400 SaO2% (BldA) [Mass fraction] 97 % Karen Dai NURSING HOME 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 Work Phone: [facility] 02-01-2024 13:01-0400 Systolic blood pressure 138 mm[Hg] Karen Dai NURSING HOME 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 Work Phone: [facility] Encounters Encounter Date Encounter Type Care Provider Facility Start: 07-04-2024 End: 07-04-2024 ambulatory RADHA MAGUIRE Not Available Start: 05-04-2024 End: 05-04-2024 ambulatory [place]AN [place] Not Available Start: 04-19-2024 End: 04-19-2024 ambulatory KAREN DAI [facility] Start: 04-19-2024 Encounter for gynecological examination (general) (routine) without abnormal findings [facility] Start: 04-19-2024 End: 04-19-2024 [facility] Start: 04-19-2024 Encounter for gynecological examination (general) (routine) without abnormal findings [facility] Start: 04-01-2024 End: 04-01-2024 Evaluation and management of inpatient JULIA HARRIS [facility] Start: 03-31-2024 End: 04-01-2024 Evaluation and management of inpatient CARMELO [facility] Start: 03-17-2024 End: 03-17-2024 ambulatory HEMA Wilson BERNY [facility] Start: 03-17-2024 Encounter for other preprocedural examination [facility] Start: 03-15-2024 End: 03-15-2024 ambulatory [facility] Start: 02-23-2024 Telephone encounter Subha Irene CMA [facility] Start: 02-22-2024 Orders Only Karen Dai NURSING HOME 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 Work Phone: [facility] Comment on above: Type 2 diabetes nancy itus without complication, without long- term current use of insulin ([facility]) (Primary Dx) Start: 02-17-2024 End: 02-17-2024 ambulatory [facility] Start: 02-16-2024 End: 02-16-2024 ambulatory [facility] Start: 02-16-2024 End: 02-16-2024 Office outpatient new 30 minutes [facility] NURSING HOME ADMINISTRATOR-IMMIGRATION SERVICES OFFICER Work Phone: [facility] Comment on above: Diarrhea, unspecifie d type (Primary Dx) Start: 02-04-2024 Orders Only Karen Dai NURSING HOME 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 Work Phone: [facility] Comment on above: Diarrhea, unspecifie d type (Primary Dx) Start: 02-03-2024 End: 02-03-2024 Orders Only Karen Dai NURSING HOME 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 Work Phone: [facility] Comment on above: Diarrhea of presumed infectious origin (Primary Dx) Start: 02-02-2024 Orders Only Karen Dai NURSING HOME 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 Work Phone: [facility] Comment on above: Type 2 diabetes nancy itus without complication, without long- term current use of insulin ([facility]) (Primary Dx); Mixed hyperlipidemia Start: 02-02-2024 End: 02-02-2024 ambulatory [facility] Start: 02-01-2024 End: 02-01-2024 ambulatory [facility] Start: 02-01-2024 End: 02-01-2024 Office outpatient visit 15 minutes Karen Dai NURSING HOME 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 Work Phone: [facility] Comment on above: Diarrhea, unspecifie d type (Primary Dx); Prediabetes; Fatigue, unspecified type; Mixed hyperlipidemia; Iron deficiency anemia due to chronic blood loss Start: 07-19-[address] KAREN DAI Facility :[facility] Start: 02-21-2022 End: 02-22-[address] KAREN DAI Facility:[facility] Start: 02-18-2022 End: 03-28-[address] KAREN DAI Facility:[facility] Start: 11-15-2021 End: 11-16-[address] KAREN DAI Facility:[facility] Start: 11-13-2021 End: 11-14-[address] KAREN DAI Facility:[facility] Procedures Date Procedure Procedure Detail Performing Clinician Start: 02-01-2024 Adult depression scr eening assessment Karen Dai NURSING HOME 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 Work Phone: Start: 02-08-2021 Microscopic observat ion [Identifier] in Cervix by Cyto stain Karen Dai NURSING HOME 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 Work Phone: Plan of Treatment Date Care Activity Detail Author Start: 02-15-2025 Adult BMI Screening Adult BMI Screen ing [facility] Start: 2025 Tobacco Screening Tobacco Screening [facility] Start: 01-31-2025 Adult BMI Screening Adult BMI Screen ing [facility] Start: 01-31-2025 Depression Screening Depression Scre ening [facility] Start: 01-31-2025 Tobacco Screening Tobacco Screening [facility] Start: 07-24-2024 Influenza vaccination Influenza Vacc ine [facility] Start: 03-24-2024 End: 03-24-2024 Patient encounter procedure 03/24/2024 2:00 PM EDT Office Visit [facility] [address] [place] [address] Karen Dai, NURSING HOME 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 [address] [place] [address] [facility] Internal Medicine - Family Medicine Start: 03-15-2024 End: 03-15-2024 Patient encounter procedure 03/15/2024 2:15 PM EDT Office Visit [facility] General Surgery [address] [place] [address] Gerald Butterfield NURSING HOME ADMINISTRATOR-IMMIGRATION SERVICES OFFICER [address] [place] [address] [facility] General Surgery Start: 02-26-2024 End: 02-26-2024 Patient encounter procedure 02/26/2024 1:30 PM EDT Office Visit [facility] General Surgery [address] [place] [address] Gerald Butterfield, NURSING HOME ADMINISTRATOR-IMMIGRATION SERVICES OFFICER [address] [facility] [place] [address] [facility] General Surgery Start: 02-23-2024 End: 02-23-2024 Patient encounter procedure 02/23/2024 1:00 PM EDT Office Visit [facility] [address] [place] [address] Karen Dai, NURSING HOME 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 [address] [place] [address] [facility] Start: 02-22-2024 DTaP,Tdap and Td Vaccines (6 - Tdap) DTaP,Tdap and Td Vaccines (6 - Tdap) [facility] Comment on above: Postponed from 03/26 (Patient Refused) Start: 02-20-2024 Adult BMI Screening Adult BMI Screen ing [facility] Start: 02-20-2024 Depression Screening Depression Scre ening [facility] Start: 02-20-2024 Tobacco Screening Tobacco Screening [facility] Start: 02-09-2024 Screening for malign ant neoplasm of cervix Pap Smear [facility] Start: 07-24-2023 Influenza vaccination Influenza Vacc ine [facility] Start: 2012 Adult BMI Follow Up Plan Adult BMI Follow Up Plan [facility] Start: 2012 Diabetic foot examination Diabetic Foot Exam [facility] Start: 2005 DTaP,Tdap and Td Vaccines (6 - Tdap) DTaP,Tdap and Td Vaccines (6 - Tdap) [facility] Start: 1994 Glaucoma screening Diabetic Op hthalmology Exam [facility] Start: 1994 Urine screening for protein Urine Microalbumin [facility] End: 02-15-2025 Calprotectin, F Calprotectin, F Lab Routine Diarrhea, unspecified type 1 Occurrences starting 02/16/2024 until 02/15/2025 [facility] Work Phone: Comment on above: 1 Occurrences starti ng 02/16/2024 until 02/15/2025 End: 01-31-2025 Comprehensive metabolic 2000 panel - Serum or Plasma Comprehensive metabolic panel Lab Routine Fatigue, unspecified type 1 Occurrences starting 02/01/2024 until 01/31/2025 [facility] Comment on above: 1 Occurrences starti ng 02/01/2024 until 01/31/2025 Comprehensive metabo lic 2000 panel - Serum or Plasma Comprehensive metabolic panel Lab Routine Fatigue, unspecified type 02/01/2024 10:54 PM EDT [facility] End: 02-02-2025 Fecal fat, quantitative Fecal fat, quantitative Lab Routine Diarrhea of presumed infectious origin 1 Occurrences starting 02/03/2024 until 02/02/2025 Active [facility] Work Phone: Comment on above: 1 Occurrences starti ng 02/03/2024 until 02/02/2025 End: 02-02-2025 GI Panel(stool pathogen panel) GI Panel(stool pathogen panel) Lab Routine Diarrhea of presumed infectious origin 1 Occurrences starting 02/03/2024 until 02/02/2025 [facility] Comment on above: 1 Occurrences starti ng 02/03/2024 until 02/02/2025 End: 01-31-2025 Hemoglobin A1c/Hemoglobin.total in Blood Hemoglobin A1c Lab Routine Prediabetes 1 Occurrences starting 02/01/2024 until 01/31/2025 [facility] Comment on above: 1 Occurrences starti ng 02/01/2024 until 01/31/2025 Hemoglobin A1c/Hemoglobin.total in Blood Hemoglobin A1c Lab Routine Prediabetes 02/01/2024 10:54 PM EDT [facility] End: 01-31-2025 Iron [Mass/volume] in Serum or Plasma Iron level Lab Routine Iron deficiency anemia due to chronic blood loss 1 Occurrences starting 02/01/2024 until 01/31/2025 [facility] Comment on above: 1 Occurrences starti ng 02/01/2024 until 01/31/2025 Iron [Mass/volume] i n Serum or Plasma Iron Lab Routine Iron deficiency anemia due to chronic blood loss 02/01/2024 10:54 PM EDT [facility] Lipid 1996 panel - Serum or Plasma Lipid profile Lab Routine Mixed hyperlipidemia 02/01/2024 10:54 PM EDT [facility] End: 01-31-2025 Lipid panel Lipid panel Lab Routine Mixed hyperlipidemia 1 Occurrences starting 02/01/2024 until 01/31/2025 [facility] Comment on above: 1 Occurrences starti ng 02/01/2024 until 01/31/2025 End: 01-31-2025 Thyroid profile includes TSH FT4 Thyroid profile includes TSH FT4 Lab Routine Fatigue, unspecified type 1 Occurrences starting 02/01/2024 until 01/31/2025 [facility] Work Phone: Comment on above: 1 Occurrences starti ng 02/01/2024 until 01/31/2025 Thyroid profile includes TSH FT4 Thyroid profile includes TSH FT4 Lab Routine Fatigue, unspecified type 02/01/2024 10:54 PM EDT [facility] Immunizations Immunization Date Immunization Notes Care Provider Lavinia rose 06-28-2000 diphtheria, tetanus toxoids and acellular pertussis vaccine, unspecified formulation Karen Dai NURSING HOME 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 Work Phone: [facility] 06-28-1999 hepatitis B vaccine, pediatric or pediatric/adolescent dosage Karen Dai NURSING HOME 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 Work Phone: [facility] 06-28-1999 measles, mumps and rubella virus vaccine Karen Dai NURSING HOME 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 Work Phone: [facility] 06-28-1999 trivalent poliovirus vaccine, live, oral Karen Dai NURSING HOME 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 Work Phone: [facility] 04-24-1995 diphtheria, tetanus toxoids and acellular pertussis vaccine, unspecified formulation Karen Dai NURSING HOME 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 Work Phone: [facility] 04-24-1995 haemophilus influenz ae type b vaccine, conjugate unspecified formulation Karen Dai NURSING HOME 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 Work Phone: [facility] 04-24-1995 measles, mumps and rubella virus vaccine Karen Dai NURSING HOME 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 Work Phone: [facility] 1994 diphtheria, tetanus toxoids and pertussis vaccine Karen Dai NURSING HOME 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 Work Phone: [facility] 1994 haemophilus influenz ae type b vaccine, conjugate unspecified formulation Karen Dai NURSING HOME 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 Work Phone: [facility] 1994 hepatitis B vaccine, pediatric or pediatric/adolescent dosage Karen Dai NURSING HOME 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 Work Phone: [facility] 1994 trivalent poliovirus vaccine, live, oral Karen Dai NURSING HOME 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 Work Phone: [facility] 1994 diphtheria, tetanus toxoids and pertussis vaccine Karen Dai NURSING HOME 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 Work Phone: [facility] 1994 haemophilus influenz ae type b vaccine, conjugate unspecified formulation Karen Dai NURSING HOME 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 Work Phone: [facility] 1994 hepatitis B vaccine, pediatric or pediatric/adolescent dosage Karen Dai NURSING HOME 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 Work Phone: [facility] 1994 trivalent poliovirus vaccine, live, oral Karen Dai NURSING HOME 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 Work Phone: [facility] 1994 diphtheria, tetanus toxoids and pertussis vaccine Karen Dai NURSING HOME 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 Work Phone: [facility] 1994 haemophilus influenz ae type b vaccine, conjugate unspecified formulation Karen Dai NURSING HOME 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 Work Phone: [facility] 1994 hepatitis B vaccine, pediatric or pediatric/adolescent dosage Karen Dai NURSING HOME 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 Work Phone: [facility] 1994 trivalent poliovirus vaccine, live, oral Karen Dai NURSING HOME 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 Work Phone: [facility] Payers Date Payer Category Payer Unknown [id number] 2023 Unknown [id number] 1994 Unknown [id number] 2.16.84 [id number] 1994 Unknown [id number] 2.16.84 [id number] 1994 Unknown [id number] 2.16.84 0.1.948958.3.579.2.593 1994 Unknown [id number] 2.16.84 0.1.686860.3.579.2.59 1994 Unknown [id number] 2.16.84 0.1.293623.3.579.2. 1994 Unknown [id number] 2.16.8 40.1.600164.3.579.2.1285 1994 Unknown [id number] 2.16.8 40.1.167120.3.579.2.1285 1994 Unknown [id number] 2.16.8 40.1.921794.3.579.2.1285 1994 Unknown [id number] 2.16.8 40.1.328114.3.579.2.1285 1994 Unknown [id number] 2.16.8 40.1.095557.3.579.2.1285 1994 Unknown [id number] 2.16.8 40.1.991275.3.579.2.1285 1994 Unknown [id number] 2.16.8 40.1.987206.3.579.2.1285 1994 Unknown [id number] 2.16.8 40.1.872617.3.579.2.1285 1994 Unknown [id number] 2.16.8 40.1.080858.3.579.2.1285 1994 Unknown [id number] 2.16.8 40.1.585036.3.579.2.1285 1994 Unknown [id number] 2.16.8 40.1.155418.3.579.2.1285 1994 Unknown [id number] 2.16.8 40.1.665478.3.579.2.1285 1994 Unknown [id number] 2.16.8 40.1.878844.3.579.2.1285 1994 Unknown [id number] 2.16.8 40.1.902589.3.579.2.1286 1994 Unknown [id number] 2.16.8 40.1.813339.3.579.2.1286 1994 Unknown [id number] 2.16.84 0.1.933596.3.579.2.1259 1994 Unknown [id number] 2.16.84 0.1.891154.3.579.2.1259 1959 Self-pay [id number] 1959 Unknown [id number] Social History Date Type Detail Facility Start: 02-01-2024 End: 02-16-2024 Tobacco smoking status LAIS Ex-smoker [facility] Start: 07-24-2011 End: 12-12-2015 History of tobacco use Current smoker [facility] Start: 07-24-2011 End: 12-12-2015 History of tobacco use Cigarette Smoker [facility] Start: 02-01-2024 End: 02-16-2024 Tobacco use and exposure Smokeless tobacco non-user [facility] Start: 02-01-2024 End: 02-16-2024 Alcohol intake Lifetime non-drinker (finding) [facility] Start: 02-19-2023 End: 02-16-2024 History of Social function [facility] Start: 02-19-2023 End: 02-16-2024 Social connection and isolation panel [facility] Do you belong to any clubs or organizations such as hoahaoism groups, unions, fraternal or athletic groups, or school groups? No [facility] Are you now , , , , never or living with a partner? [facility] How often to you hav e a drink containing alcohol? Never [facility] How many standard dr inks containing alcohol do you have on a typical day? Patient does not drink [facility] How hard is it for y ou to pay for the very basics like food, housing, medical care, and heating Not very hard [facility] Do you feel stress - tense, restless, nervous, or anxious, or unable to sleep at night because your mind is troubled all the time - these days [OSQ] Not at all [facility] Start: 1994 Sex Assigned At Not on file P [facility] Clinical Notes 02-01-2024 to 02-23-2024 Telephone Encounter - Subha Irene CMA - 02/23/2024 9:43 AM EDTTelephone Encounter - Subha Irene CMA - 02/23/2024 9:43 AM EDTARACELI Bae CNP - 02/16/2024 1:30 PM EDT Note Date & Type Note Facility 02-23-2024 Miscellaneous Notes Formattin g of this note might be different from the original. ----- Message from INEZ Bae sent at 02/22/2024 12:26 PM EDT ----- Regarding: Results Please let patient know stool test was normal meaning there is no inflammation in her intestines and her symptoms are most likely irritable bowel. Thank you, Gerald ----- Message ----- From: Interface - Lab Results/Orders In Sent: 02/20/2024 5:23 PM EDT To: INEZ Bae documented in this encounter [facility] 02-23-2024 Telephone encount er Note ----- Message from INEZ Bae sent at 02/22/2024 12:26 PM EDT ----- Regarding: Results Please let patient know stool test was normal meaning there is no inflammation in her intestines and her symptoms are most likely irritable bowel. Thank you, Gerald ----- Message ----- From: Interface - Lab Results/Orders In Sent: 02/20/2024 5:23 PM EDT To: INEZ Bae [facility] 02-16-2024 History of Presen t illness Narrative Images from the original note were not included. Chief Complaint: Diarrhea History of Present Illness Garrett Dary Murphy is a 28 y.o. female who presents to the office for diarrhea. Symptoms started 1 month ago. She reports 2 bowel movements daily. She reports abdominal pain and cramps prior to bowel movements that resolve after she goes. She denies any recent travel or antibiotic use. She denies any constipation, blood in her stool, unintentional weight loss. There is no family history of colon cancer. She has not noticed any aggravating foods. She has been following a low FODMAP diet. She does not eat an increased amount of fast or fried food. She is only drinking 1 bottle of water daily. She only eats 1-2 servings of fruits/vegetables daily. She stopped taking her Metformin to see if this was the cause, this has not helped. TSH and GI panel were completed by her PCP. Everything came back normal. She has a history of cholecystectomy in 2018. Feels like symptoms are unrelated. Review of Systems Constitutional: Negative for fever and unexpected weight change. HENT: Negative for trouble swallowing. Respiratory: Negative for shortness of breath. Cardiovascular: Negative for chest pain. Gastrointestinal: Positive for diarrhea. Negative for nausea, vomiting, constipation, blood in stool and black tarry stool. Abdominal pain/cramps prior to bowel movements Genitourinary: Negative for dysuria and difficulty urinating. Musculoskeletal: Negative for gait problem. Skin: Negative for rash and wound. Neurological: Negative for dizziness, weakness and light-headedness. Hematological: Does not bruise/bleed easily. Psychiatric/Behavioral: Negative for confusion. Past Medical History: Diagnosis Date Anemia Anxiety Back pain January 2021 Sciatica, lower back pain Depression GERD (gastroesophageal reflux disease) Obesity Visual impairment Past Surgical History: Procedure Laterality Date CHOLECYSTECTOMY December 2017 GALLBLADDER SURGERY Allergies Allergen Reactions Penicillins Hives and Rash Current Outpatient Medications: escitalopram (LEXAPRO) 20 mg tablet, Take 1 tablet (20 mg total) by mouth in the morning., Disp: 90 tablet, Rfl: 1 losartan (COZAAR) 25 mg tablet, Take 1 tablet (25 mg total) by mouth in the morning., Disp: 90 tablet, Rfl: 3 rosuvastatin (CRESTOR) 5 mg tablet, Take 1 tablet (5 mg total) by mouth nightly., Disp: 90 tablet, Rfl: 3 psyllium (METAMUCIL) 0.52 gram capsule, Take 1 capsule (0.52 g total) by mouth in the morning and 1 capsule (0.52 g total) before bedtime., Disp: 60 capsule, Rfl: 1 Social History Socioeconomic History Marital status: Spouse name: Not on file Number of children: Not on file Years of education: Not on file Highest education level: Not on file Occupational History Not on file Tobacco Use Smoking status: Former Packs/day: 1.50 Years: 5.00 Additional pack years: 0.00 Total pack years: 7.50 Types: Cigarettes Start date: 07/24/2011 Quit date: 12/12/2015 Years since quittin.1 Smokeless tobacco: Never Vaping Use Vaping Use: Never used Substance and Sexual Activity Alcohol use: Never Drug use: Never Sexual activity: Yes Partners: Male control/protection: None Other Topics Concern Not on file Social History Narrative Not on file Social Determinants of Health Financial Resource Strain: Low Risk (01/30/2024) Overall Financial Resource Strain (CARDIA) Difficulty of Paying Living Expenses: Not very hard Food Insecurity: No Food Insecurity (02/16/2024) Hunger Screening Food Insecurity - Worry: Never True Food Insecurity - Inability: Never True Transportation Needs: No Transportation Needs (01/30/2024) PRAPARE - Transportation Lack of Transportation (Medical): No Lack of Transportation (Non-Medical): No Physical Activity: Insufficiently Active (02/19/2023) Exercise Vital Sign Days of Exercise per Week: 2 days Minutes of Exercise per Session: 20 min Stress: No Stress Concern Present (02/19/2023) [employer] - Occupational Stress Questionnaire Feeling of Stress : Not at all Social Connections: Moderately Isolated (02/19/2023) Social Connection and Isolation Panel [NHANES] Frequency of Communication with Friends and Family: More than three times a week Frequency of Social Gatherings with Friends and Family: More than three times a week Attends Sikhism Services: Never Active Member of Clubs or Organizations: No Attends Club or Organization Meetings: Never Marital Status: Interpersonal Safety: Not At Risk (02/19/2023) Humiliation, Afraid, Rape, and Kick questionnaire Fear of Current or Ex-Partner: No Emotionally Abused: No Physically Abused: No Sexually Abused: No Housing Instability: Low Risk (01/30/2024) Housing Instability Housing Instability: No Family History Problem Relation Age of Onset Thyroid disease Mother High Cholesterol Mother Hypertension Mother Asthma Mother Breast cancer Mother In her early 70s Breast cancer Maternal Grandmother Stroke Maternal Grandmother had a sudden at age 82-unknown cause Diabetes type II Maternal Grandmother Ovarian cancer Maternal Grandmother Arthritis Maternal Grandmother Mental illness Maternal Grandmother Heart attack Maternal Grandfather 55 Arthritis Maternal Grandfather COPD Paternal Grandfather No Known Problems Half Brother paternal 1/2 Objective Physical Exam Constitutional: General: She is not in acute distress. Appearance: Normal appearance. She is obese. She is not ill-appearing. HENT: Head: Normocephalic and atraumatic. Mouth/Throat: Mouth: Mucous membranes are moist. Eyes: Pupils: Pupils are equal, round, and reactive to light. Cardiovascular: Rate and Rhythm: Normal rate and regular rhythm. Pulmonary: Effort: Pulmonary effort is normal. No respiratory distress. Abdominal: General: Bowel sounds are normal. There is no distension. Palpations: Abdomen is soft. Tenderness: There is no abdominal tenderness. There is no guarding. Musculoskeletal: General: Normal range of motion. Skin: General: Skin is warm and dry. Neurological: Mental Status: She is alert and oriented to person, place, and time. Mental status is at baseline. Vital Signs: Blood pressure 153/85, pulse 71, height 165.1 cm (5' 5 ), weight 135.4 kg (298 lb 8 oz). Respiratory Source: No data recorded Admission Weight: Weight: 135.4 kg (298 lb 8 oz) Labs Lab Results Component Value Date WBC 8.2 02/01/2024 HGB 13.3 02/01/2024 HCT 40.2 02/01/2024 MCV 82 02/01/2024 PLT 429 02/01/2024 Lab Results Component Value Date GLU 136 (H) 02/01/2024 CALCIUM 9.7 02/01/2024 K 3.8 02/01/2024 CO2 26 02/01/2024 CL 104 02/01/2024 BUN 8 02/01/2024 CREATININE 0.57 02/01/2024 No results found for: AMYLASE No results found for: LIPASE Lab Results Component Value Date ALT 53 (H) 02/01/2024 AST 35 02/01/2024 ALKPHOS 71 02/01/2024 No results found for: INR , PROTIME Assessment Garrett Murphy is a 28 y.o.female with diarrhea. Plan Check fecal calprotectin to rule out any inflammatory causes. Recommend starting with dietary and lifestyle modifications as she is not having any alarm symptoms. She was instructed to drink 64 oz of water daily and increase fiber to help bulk stools. She should also keep a food log to help pinpoint any aggravating foods. She states she has been more nervous/anxious recently due to the changes in her bowels, which could certainly be causing some of her symptoms as well. Follow-up 4-6 weeks. Evaluation included: Preparing to see the patient (e.g., review of tests) Obtaining and/or reviewing separately obtained history Performing a medically appropriate examination and/or evaluation Counseling and educating the patient/family/caregiver Referring and communicating with other health ambulatory care coordinator Diarrhea, unspecified type [R19.7] INEZ BAE [facility] General Surgery [place] This note was created with the assistance of a speech recognition program. While intending to generate a timely document that accurately reflects the content of the visit, no guarantee can be provided that every grammatical or spelling mistake has been or will be identified or corrected. Thank you for your understanding. INEZ Bae 02/16/24 1349 documented in this encounter [facility] 02-01-2024 History of Presen t illness Narrative Subjective Patient ID: Garrett Murphy is a 28 y.o. female. She had been having intermittent loose stool for some time But now for the past week she has been having either several loose stools with cramping after eating or small, flat stools following eating She hasn't felt feverish or ill, no one around her has been ill She has been on the glucophage for some time She has been taking this for her igt and PCOS Her periods continue to be moderate and occur every few months She does have some fatigue but not different than usual She does have a history of iron deficiency anemia She stopped the wegovy about 8-10 months ago due to availability not due to any issues with tolerability Abdominal Pain Associated symptoms include diarrhea and myalgias. The following portions of the patient's history were reviewed and updated as appropriate: allergies, current medications, past family history, past medical history, past social history, past surgical history, problem list, and medication reconciliation was completed including current medication and post discharge medication. Review of Systems Constitutional: Positive for fatigue. HENT: Negative. Eyes: Negative. Respiratory: Negative. Cardiovascular: Negative. Gastrointestinal: Positive for abdominal pain and diarrhea. Endocrine: Negative. Genitourinary: Negative. Musculoskeletal: Positive for myalgias. Skin: Negative. Allergic/Immunologic: Negative. Neurological: Negative. Hematological: Negative. Psychiatric/Behavioral: Negative. Objective Physical Exam Vitals and nursing note reviewed. Constitutional: Appearance: She is obese. HENT: Head: Normocephalic. Eyes: Conjunctiva/sclera: Conjunctivae normal. Neck: Vascular: No carotid bruit. Cardiovascular: Rate and Rhythm: Normal rate and regular rhythm. Pulses: Normal pulses. Heart sounds: Normal heart sounds. No murmur heard. Pulmonary: Effort: Pulmonary effort is normal. No respiratory distress. Breath sounds: Normal breath sounds. Abdominal: General: Abdomen is flat. Bowel sounds are normal. There is no distension. Palpations: There is no mass. Tenderness: There is abdominal tenderness (mild epigastrum). Musculoskeletal: Right lower leg: No edema. Left lower leg: No edema. Lymphadenopathy: Cervical: No cervical adenopathy. Skin: General: Skin is warm and dry. Capillary Refill: Capillary refill takes less than 2 seconds. Neurological: Mental Status: She is alert and oriented to person, place, and time. Psychiatric: Mood and Affect: Mood normal. Behavior: Behavior normal. Thought Content: Thought content normal. Judgment: Judgment normal. Assessment/Plan Garrett was seen today for abdominal pain. Diagnoses and all orders for this visit: Diarrhea, unspecified type Prediabetes - Hemoglobin A1c; Future Fatigue, unspecified type - Thyroid profile includes TSH FT4; Future - CBC auto differential; Future - Comprehensive metabolic panel; Future Mixed hyperlipidemia - Lipid panel; Future Iron deficiency anemia due to chronic blood loss - Iron level; Future For now will have her stop the glucophage, even though she has been on this for some time this seems the most likely offendor Will get some labs to rule out other causes Would like to get her back on something like a mounjare or ozempic to combine blood sugar control with weight loss but need to see her labs first [facility] 02/01/24 1341 documented in this encounter [facility] Diagnosis Diarrhea, unspecified type- Primary Prediabetes Other abnormal glucose Fatigue, unspecified type Mixed hyperlipidemia Iron deficiency anemia due to chronic blood loss Iron deficiency anemia secondary to blood loss (chronic) documented in this encounter [facility]* Diagnosis Type 2 diabetes mellitus without complication, without long-term current use of insulin ([facility])- Primary Mixed hyperlipidemia documented in this encounter [facility]* Diagnosis Diarrhea of presumed infectious origin- Primary [facility] Diagnosis Diarrhea, unspecified type- Primary [facility]* Diagnosis Diarrhea, unspecified type- Primary [facility] Diagnosis Type 2 diabetes mellitus without complication, without long-term current use of insulin ([facility])- Primary documented in this encounter [facility] filedocumented in this encounter [facility] on filedocumented in this encounter [facility] filedocumented in this encounter [facility]Not on filedocumented in this encounter [facility]* Attachments The following attachments cannot be sent through Care Everywhere. * Diarrhea in adolescents and adults ([place] Leone[place]) [facility]ructionsNot on file documented in [facility] System[facility]ructionsNot on file documented in [facility] SystemReason for referral (narrative)* Consultation (Routine) - Authorized Specialty Diagnoses / Procedures Referred By Sarah Beth t Referred To Contact General Surgery Diagnoses Diarrhea, unspecified type Karen Dai, NADEGE-DOROTHY [address] [place] [address] Carmelo Rocha, [address] [place] [address] Referral ID Status Reason Start Date Expiration Date Visits Requested Visits Authorized [id number] Authorized Specialty Services Required 02/04/2024 02/03/2025 1 1 [facility] Summary Purpose Family History No Family History Records FoundNo Family History Records FoundNo Family History Records FoundNo Family History Records FoundNo Family History Records FoundNo Family History Records Found Advance Directives No Advanced Directives Records FoundNo Advanced Directives Records FoundNo Advanced Directives Records FoundNo Advanced Directives Records FoundNo Advanced Directives Records FoundNo Advanced Directives Records Found Reason for Referral Specialty Diagnoses / Procedures Referred By Sarah Beth tavarez Referred To Contact Diagnoses Type 2 diabetes mellitus without complication, without long-term current use of insulin ([facility]) Karen Dai, NURSING HOME 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 [address] [place] [address] Referral ID Status Reason Start Date Expiration Date V isits Requested Visits Authorized [id number] Pending Review 1 1 Referral ID Status Reason Start Date Expiration Date V isits Requested Visits Authorized [id number] Pending Review 1 1 Specialty Diagnoses / Procedures Referred By Sarah Beth tavarez Referred To Contact Karen Dai, NURSING HOME 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 [address] [place] [address] Referral ID Status Reason Start Date Expiration Date V isits Requested Visits Authorized [id number] Authorized 02/22/2024 02/21/2025 1 1 Additional Source Comments INFORMATION SOURCE (unrecogn ized section and content) DATE CREATED AUTHOR 11/09/2021 [facility] DATE CREATED AUTHOR AUTHOR'S ORGANIZ ATION 07/20/2022 [facility] DATE CREATED AUTHOR AUTHOR'S ORGANIZ ATION 02/03/2024 [facility] DATE CREATED AUTHOR AUTHOR'S ORGANIZ ATION 04/20/2024 [facility] DATE CREATED AUTHOR AUTHOR'S ORGANIZ ATION 05/02/2024 [facility] DATE CREATED AUTHOR AUTHOR'S ORGANIZ ATION 07/05/2024 [facility] Reason for Visit (unrecogniz ed section and content) Reason Comments Abdominal Pain Reason Comments Diarrhea Diarrhea, referred b y Karen Dai CNP Specialty Diagnoses / Procedures Referred By Sarah Beth tavarez Referred To Contact General Surgery Diagnoses Diarrhea, unspecified type Karen Dai Rose, NURSING HOME 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 [address] [place] [address] Carmelo Rocha DO [address] [place] [address] Referral ID Status Reason Start Date Expiration Date V isits Requested Visits Authorized [id number] Closed Specialty Services Required 02/04/2024 02/03/2025 1 1 Care Teams (unrecognized sec tion and content) 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 Specialty Start Date End Date Yahir Cedeño DO [address] [place] [address] PCP - General Family Medicine 01/28/23 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 Specialty Start Date End Date Yahir Cedeño DO [address], [place] [address] PCP - General Family Medicine 01/28/23 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 Specialty Start Date End Date Yahir Cedeño DO [address], [place] [address] PCP - General Family Medicine 01/28/23 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 Specialty Start Date End Date Yahir Cedeño DO [address], [place] [address] PCP - General Family Medicine 01/28/23 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 Specialty Start Date End Date Yahir Cedeño DO [address], [place] [address] PCP - [facility] Family Medicine 01/28/23 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 Specialty Start Date End Date Yahir Cedeño DO [address] [place] [address] PCP - [facility] 01/28/23 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 Specialty Start Date End Date Yahir Cedeño DO [address] [place] [address] PCP - [facility] 01/28/23 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 Specialty Start Date End Date Yahir Cedeño DO [address] [place] [address] PCP - [facility] Medicine 01/28/23 FOR RECORDS PERTAINING TO PATIENTS WHO ARE OR HAVE BEEN ENROLLED IN A CHEMICAL DEPENDENCY/SUBSTANCEABUSE PROGRAM, SOME INFORMATION MAY BE OMITTED. This clinical summary was aggregated from multiple sources. Caution should be exercised in using it in the provision of clinical care. This summary normalizes information from multiple sources, and as a consequence, information in this document may materially change the coding, format and clinical context of patient data. In addition, data may be omitted in some cases. CLINICAL DECISIONS SHOULD BE BASED ON THE PRIMARY CLINICAL RECORDS. [facility] [employer] [facility]. provides no warranty or guarantee of the accuracy or completeness of information in this document.
[2024-07-23 16:10] VITALS: O2SAT 98
--- NOTE | 2024-07-23 16:15 | ED.ANIMALBI1 ---
HPI - Animal Bite General Chief Complaint: Animal Bite Stated Complaint: bat exposure Time Seen by Provider: 07/23/24 15:59 Source: patient Mode of arrival: walk-in History of Present Illness HPI narrative: Patient is a 29-year-old female who presents to the emergency department for a possible exposure to a bat 10 days ago. She states she was mowing the lawn 10 days ago when a flying animal hit the back of her right calf. She states she thought it might be a bat but she is not sure if it may have been a bird. She did not sustain a bite or wound that she is aware of. She states that she has been looking online and becoming more anxious about the possibility of a bat bite. She is not concerned for . She has no symptoms or focal medical complaints. No medications taken prior to arrival. Related Data Allergies Allergy/AdvReac Type Severity Reaction Status Date / Time Penicillins AdvReac Severe Hives Verified 07/23/24 16:06 Review of Systems ROS Constitutional Denies: fever or chills Ears, nose, mouth, and throat Denies: throat pain or nasal congestion Cardiovascular Denies: chest pain Respiratory Denies: shortness of breath Gastrointestinal Denies: nausea or vomiting Musculoskeletal Denies: back pain Integumentary/Breast Denies: rash Neurological Denies: numbness in extremities or weakness in extremities Hematologic/Lymphatic Denies: easy bruising or easy bleeding Exam Narrative Exam Narrative: Gen.: Awake, alert, in no distress Head: Normocephalic, atraumatic ENT: Moist mucous membranes Respiratory: No respiratory distress Extremities: Moves extremities equally, no injuries noted Psych: Normal mood and affect Neuro: No focal neuro deficit Skin: Warm, dry, intact Constitutional Vital Signs, click to edit/add: Last Vital Signs Temp 99.1 F 07/23/24 16:02 Pulse 101 H 07/23/24 16:02 Resp 18 07/23/24 16:02 BP 115/39 L 07/23/24 16:02 Pulse Ox 98 07/23/24 16:10 O2 Del Method Room Air 07/23/24 16:10 Course Vital Signs Vital signs: Vital Signs Temperature 99.1 F 07/23/24 16:02 Pulse Rate 101 H 07/23/24 16:02 Respiratory Rate 18 07/23/24 16:02 Blood Pressure 115/39 L 07/23/24 16:02 Pulse Oximetry 98 07/23/24 16:02 Oxygen Delivery Method Room Air 07/23/24 16:02 Temperature 99.1 F 07/23/24 16:02 Pulse Rate 101 H 07/23/24 16:02 Respiratory Rate 18 07/23/24 16:02 Blood Pressure 115/39 L 07/23/24 16:02 Pulse Oximetry 98 07/23/24 16:10 Oxygen Delivery Method Room Air 07/23/24 16:10 MDM - Animal Bite MDM Narrative Medical decision making narrative: Discussed with the patient, she had a possible exposure 10 days ago and there is no evidence of wound to the leg. CDC recommendations however are if she was exposed to a bat that she should be vaccinated for rabies and patient was given the option of rabies vaccine and immunoglobulin, patient would like to proceed with this and she was treated with rabies vaccine in the ER and immunoglobulin to multiple sites. She was given an order to send to centralized scheduling to set her up in the infusion center for additional rabies vaccine. Follow-up with PCP and return to the ER if symptoms change or worsen SUPERVISED APC VISIT, PHYSICIAN ATTESTATION: Based on the medical record the care appears appropriate. ? Medical Records Attestation: I reviewed the patient's medical records. Discharge Plan Discharge Stand Alone Forms: Portal Instructions Chief Complaint: Animal Bite Clinical Impression: Exposure to bat without known bite Patient Disposition: Home, Self-Care Time of Disposition Decision: 16:12 Condition: Good Print Language: Occitan Instructions: Rabies Vaccine (By injection) Referrals: Physician,Non-Staff, [Physician] - 1 week
[2024-07-23] MEDS: RABIES IMMUNE GLOBULIN/PF 300 UNIT/2 ML VIAL 2857.64 UNIT IM (16:34)
[2024-07-23] MEDS: RABIES VACCINE/PF 1 ML VIAL IM (16:35)
[2024-07-23 17:16] VITALS: BP 118/69; PULSE 87; O2SAT 98
== END 2024-07-23 17:20 | disposition home or self-care (01) ==
PROVIDERS: Emergency Provider Emergency Medicine Emergency Medical Services; PCP Family Medicine
DX: Z20.3 Contact with and (suspected) exposure to rabies (principal)
CPT/HCPCS: 90377; 90471; 90472; 90675; 99284

== ENCOUNTER 2024-08-06 14:54 | Outpatient (RCR) | payer BC, SELFPAY ==
[2024-07-26 14:55] VITALS: BP 188/93; PULSE 96; TEMP 36.7; O2SAT 97
[2024-07-26] MEDS: RABIES VACCINE/PF 1 ML VIAL IM (15:15)
[2024-07-30 15:07] VITALS: BP 163/85; PULSE 90; TEMP 36.7; O2SAT 96
[2024-07-30] MEDS: RABIES VACCINE/PF 1 ML VIAL IM (15:12)
== END 2024-08-22 23:59 | disposition home or self-care (01) ==
LOC: INF 14:54
PROVIDERS: PCP Family Medicine; Visit Provider Physician Assistant
DX: Z20.3 Contact with and (suspected) exposure to rabies (principal); Z23 Encounter for immunization
CPT/HCPCS: 90471; 90675; 96372

== ENCOUNTER 2025-08-17 09:52 | Outpatient (RCR) | payer BC, SELFPAY | END 2025-09-28 07:35 | disposition home or self-care (01) | LOC: PT 09:52 | PROVIDERS: PCP Family Medicine; Visit Provider Family Medicine | DX: M25.512 Pain in left shoulder (principal); M54.6 Pain in thoracic spine; G89.29 Other chronic pain; M79.609 Pain in unspecified limb; R20.2 Paresthesia of skin | CPT/HCPCS: 97012; 97110; 97140; 97161 ==